=== PATIENT | female | born 1980 ===

== ENCOUNTER 2020-06-26 16:45 | Outpatient (REF) | payer SELFPAY ==
[2020-06-30 05:37] LABS: SARS-CoV-2 RNA Undetected (Undetected)
== END 2020-06-26 17:05 ==
LOC: LBN 16:45
PROVIDERS: Visit Provider Nurse Practitioner Adult Health
DX: Z11.59 Encounter for screening for other viral diseases (principal)
CPT/HCPCS: U0003